=== PATIENT | male | born 1945 | race Caucasian/White ===

== ENCOUNTER 2019-03-12 08:00 | Day surgery (SDC) | payer OTHER ==
[~2019-03-12] VITALS: Ht 175.3 cm; Wt 101.2 kg
--- NOTE | ~2019-03-12 | OR ---
[facility] [address] [place], [place] [address] Draft DATE OF OPERATION: 03/12/2019 SURGEON: Kyaw Cheung MD PREOPERATIVE DIAGNOSES: 1. Personal history of colonic polyps. 2. Chronic constipation. 3. Hemorrhoids. POSTOPERATIVE DIAGNOSES: 1. Minimal to moderate sigmoid diverticulosis. 2. 5 mm polyps x2 and distal right colon. 3. Minimal internal hemorrhoids. PROCEDURE: Colonoscopy with hot biopsy. ESTIMATED BLOOD LOSS: None. INDICATIONS: Thomas is a 73-year-old gentleman, who is a retired registered nurse. He was asked to see me for a followup colonoscopy. He spoke of three previous colonoscopies. He said each time he has colonic polyps removed. In his records, we see an adenomatous polyp removed with mild atypia from the ascending colon in 2007. He also had a tubular adenomatous polyp removed in his transverse colon in 2013. He talked about intermittent constipation for which magnesium citrate is utilized occasionally. He also talks about hemorrhoids. In the meantime, he says he is feeling good. No specific lower GI complaints currently other than the constipation. In the office, I gave Thomas a pamphlet on colonoscopy. We looked at that together in detail. He understands the polyps grow and become colon cancers over 8 to 12 years. Consequently, he is on the 5-year rotation. I also reviewed the written instructions for the bowel prep with him line by line. He also understands the need for IV conscious sedation. He understands there is risk including, but not limited to gas bloating, crampy abdominal pain, bleeding, perforation, requiring surgery, and missed diagnosis. He had expressed understanding wished to proceed. PROCEDURE NOTE: Thomas was taken into our endoscopy suite and placed in the left lateral decubitus position. He was given 3 mg of Versed and 100 mcg of fentanyl to cover the case. A PATIENT NAME: YING MEJIA OPERATIVE REPORT DATE OF : 49 REPORT #: [id number] PHYSICIAN: KYAW CHEUNG MD PCP: BRITTANY VARELA NP REPORT IS CONFIDENTIAL AND NOT TO BE RELEASED WITHOUT AUTHORIZATION [facility] [address], [place] [address] Draft digital rectal exam was performed and he does have some induration to his prostate. It is slightly enlarged. No obvious external hemorrhoids. The adult colonoscope was introduced and advanced all around into the cecum under direct visualization of camera without difficulty. His prep was quite good. We could easily see the appendiceal orifice and the ileocecal valve. We had taken pictures throughout for photodocumentation. The scope was slowly withdrawn. He had two polyps in the distal right colon, which we removed with the help of hot biopsy forceps. He also has the minimal to moderate sigmoid diverticulosis. They are moderate in size, minimal to moderate in number, and scattered about. The rectum was unremarkable. Upon retroflexion of scope, he has minimal internal hemorrhoid columns. After this, the gas was suctioned out and colonoscope removed. Thomas tolerated procedure quite well. RECOMMENDATIONS: I will see Thomas back in my office in 7 to 14 days to review his results. He will hold aspirin and NSAIDs for one week. Kyaw Cheung MD ALB/MODL /[id number] cc: MD Brittany Barrios NP Copies: KYAW CHEUNG MD ~ PATIENT NAME: YING MEJIA OPERATIVE REPORT DATE OF : 49 REPORT #: [id number] PHYSICIAN: KYAW CHEUNG MD PCP: BRITTANY VARELA NP REPORT IS CONFIDENTIAL AND NOT TO BE RELEASED WITHOUT AUTHORIZATION
[~2019-03-12 08:00] MED LIST: BUPROPION XL150 MG PO; TRAZODONE HCL100 MG PO; TRIAMTERENE-HC1 EAC1 PO
--- NOTE | 2019-03-12 10:50 | NUR ---
03/12/19 1050 [address] 1047-PATIENT ARRIVED TO PACU ON 2L AWAKE DROWSY DENIES PAIN OR NAUSEA. ABDOMEN ROUND AND SOFT PASSING GAS. RR EVEN.
--- NOTE | 2019-03-13 12:26 | PATH ---
[facility] [address] [place], [place] [address] Signed SPECIMEN(S): A DISTAL ASCENDING COLON POLYP SPECIMEN SOURCE: A. DISTAL ASCENDING COLON POLYP CLINICAL HISTORY: Personal history of colon polyps, hemorrhoids, chronic constipation. Post: Polyps, diverticulosis, internal hemorrhoids. MICROSCOPIC DESCRIPTION: Histologic sections of all submitted blocks are examined by light microscopy. These findings, together with the gross examination, support the pathologic diagnosis. FINAL PATHOLOGIC DIAGNOSIS: Distal ascending colon polyp, polypectomy: - Fragment of tubular adenoma. DDF:cml:C2NR GROSS DESCRIPTION: The specimen, labeled "WS, distal ascending colon polyp" is received in formalin and consists of three ramos-white soft tissue fragments, ranging from 0.2-0.4 cm in greatest dimension. The specimen is entirely submitted in cassette (A1). AR (under the direct supervision of a pathologist) The Gross Description was prepared using a voice recognition system. The report was reviewed for accuracy; however, sound-alike word errors, addition and/or deletions may occur. If there is any question about this report, please contact Client Services. PERFORMING LABORATORY: The technical component was performed by [facility], [address] [place] [id number] ([employer] Test Engineer: Jillian Camp MD; CLIA# [id number]). [facility], [address] [address] ([employer] Test Engineer: Kai Ceron MD; CLIA# [id number]). Diagnostician: Rajesh Chacko DO Pathologist Electronically Signed 03/13/2019 PATIENT NAME: YING MEIJA PATHOLOGY DATE OF : 49 REPORT #: [id number] PHYSICIAN: BRIE MOORE PCP: OMARI VARELA NP REPORT IS CONFIDENTIAL AND NOT TO BE RELEASED WITHOUT AUTHORIZATION [address] [place], [place] [address] Signed Copies: ~ PATIENT NAME: YING MEJIA PATHOLOGY DATE OF : 49 REPORT #: [id number] PHYSICIAN: BRIE PATHOLOGY PCP: OMARI VARELA NP REPORT IS CONFIDENTIAL AND NOT TO BE RELEASED WITHOUT AUTHORIZATION
== END 2019-03-12 11:20 | disposition home or self-care (01) ==
LOC: DS 08:00
PROVIDERS: Colon & Rectal Surgery
PROC: 0DBK8ZZ Excision of Ascending Colon, Via Natural or Artificial Opening Endoscopic (ICD-10-PCS; principal; 2019-03-12 09:45)
DX: D12.2 Benign neoplasm of ascending colon (principal); K59.09 Other constipation; K57.30 Diverticulosis of large intestine without perforation or abscess without bleeding; E78.5 Hyperlipidemia, unspecified; I10 Essential (primary) hypertension; K64.8 Other hemorrhoids; Z79.899 Other long term (current) drug therapy; Z86.010 Personal history of colon polyps
CPT/HCPCS: 99153; G0500; J2250; J3010; J3490; J7120